=== PATIENT | male | born 1940 | race Caucasian/White ===

== ENCOUNTER → 2016-12-30 | Outpatient (CLI) | payer MEDICARE, OTHER ==
[~2016-12-30] MED LIST: ASPIRIN EC81 MG PO; ASPIRIN325 M1 PO; FIBER TABLETS625 MG PO; FINASTERIDE5 MG PO; FLOMAX0.4 MG PO; LOPRESSOR50 MG PO; MULTAQ400 M1 PO; NEXIUM20 MG PO; NITROGLYCERIN0.4 MG SL; NORVASC5 MG PO; PLAVIX75 MG PO; WARFARIN SOD5 MG PO; WARFARIN SODIU2.5 MG PO
== END ==
LOC: RT 15:40
DX: R07.9 Chest pain, unspecified (principal); R55 Syncope and collapse; R06.00 Dyspnea, unspecified; I48.91 Unspecified atrial fibrillation